=== PATIENT | male | born 1955 | race Caucasian/White ===

== ENCOUNTER → 2017-06-20 | Outpatient (CLI) | payer BC ==
[2015-02-13 10:30] VITALS: BP 143/78
[~2017-06-20] MED LIST: ACTOS30 MG PO; ACTOS45 MG PO; HYZAAR 12.5 MG-1 TAB PO; LASIX 20MG TABL20 MG PO; METFORMIN ER500 MG PO; MOBIC15 MG PO; TOPROL XL25 MG PO; VICTOZA6 MG/ML SC; ZOCOR40 MG PO
== END ==
LOC: RAD 13:29
DX: M25.461 Effusion, right knee (principal); S83.521A Sprain of posterior cruciate ligament of right knee, initial encounter; S83.511A Sprain of anterior cruciate ligament of right knee, initial encounter; X58.XXXA Exposure to other specified factors, initial encounter; M25.761 Osteophyte, right knee

== ENCOUNTER → 2021-05-01 | Outpatient (REF) | LOC: LAB 15:22 | DX: Z12.5 Encounter for screening for malignant neoplasm of prostate (principal); Z00.00 Encounter for general adult medical examination without abnormal findings ==

== ENCOUNTER → 2021-09-18 | Outpatient (CLI) | payer BC | LOC: AMSURD 16:51 | DX: R00.2 Palpitations (principal) ==

== ENCOUNTER → 2022-03-08 | Outpatient (REF) | LOC: LAB 15:19 | DX: Z01.818 Encounter for other preprocedural examination (principal); I10 Essential (primary) hypertension; K90.9 Intestinal malabsorption, unspecified; E11.9 Type 2 diabetes mellitus without complications ==

== ENCOUNTER → 2022-03-08 | Outpatient (CLI) | payer BC | LOC: RAD 15:17 | DX: Z01.818 Encounter for other preprocedural examination (principal) ==

== ENCOUNTER → 2023-12-02 | Outpatient (CLI) | payer BC | LOC: LAB 08:00 | DX: L97.221 Non-pressure chronic ulcer of left calf limited to breakdown of skin (principal) ==

== ENCOUNTER 2023-12-20 12:37 | Outpatient (RCR) | payer BC | END 2024-01-15 | LOC: AMSURD | DX: L97.221 Non-pressure chronic ulcer of left calf limited to breakdown of skin (principal) ==